=== PATIENT | male | born 1980 | race Two or more races ===

== ENCOUNTER 2021-05-14 22:42 | Emergency (ER) | payer OTHER ==
[~2021-05-14] VITALS: Ht 180.3 cm; Wt 179.6 kg
[2021-05-15] MEDS ORDERED: LEVSIN/SL0.125 MG PO (14:59)
[2021-05-15] MEDS ORDERED: PREVACID30 MG PO (14:59)
[2021-05-15] MEDS ORDERED: PEPCID AC20 MG PO (14:59)
[2021-05-29] MEDS ORDERED: ADALAT CC60 MG PO (05:48)
== END 2021-05-15 15:17 ==
LOC: ER 22:42
DX: K29.60 Other gastritis without bleeding (principal); K80.50 Calculus of bile duct without cholangitis or cholecystitis without obstruction; Z03.818 Encounter for observation for suspected exposure to other biological agents ruled out; I10 Essential (primary) hypertension

== ENCOUNTER → 2021-05-28 | Emergency (ER) | payer OTHER ==
[~2021-05-28] VITALS: Ht 177.8 cm; Wt 158.8 kg
[~2021-05-28] MED LIST: ADALAT CC60 MG PO; LEVSIN/SL0.125 MG PO; PEPCID AC20 MG PO; PREVACID30 MG PO
== END | disposition home or self-care (01) ==
LOC: ER 19:55
DX: K29.70 Gastritis, unspecified, without bleeding (principal); I10 Essential (primary) hypertension

== ENCOUNTER 2021-10-07 21:46 | Emergency (ER) | payer OTHER ==
[~2021-10-07] VITALS: Ht 180.3 cm; Wt 131.1 kg
[2021-10-07] MEDS ORDERED: NORFLEX100MG PO (22:02)
[2021-10-07] MEDS ORDERED: DICLOFENAC SODI75 MG PO (22:02)
== END 2021-10-08 | disposition home or self-care (01) ==
LOC: ER 21:46
DX: M54.2 Cervicalgia (principal); M54.50 Low back pain, unspecified; I10 Essential (primary) hypertension